=== PATIENT | female | born 2000 | race Hispanic/Latino ===

== ENCOUNTER 2019-06-23 11:52 | Outpatient (CLI) | payer MEDICAID ==
[2019-06-23] MEDS ORDERED: LACTATED RINGERS 1,000 ML ONE (12:35)
[2019-06-23] MEDS ORDERED: LACTATED RINGERS 500 ML IV ONE (12:47)
[2019-06-23] MEDS ORDERED: TERBUTALINE 1 MG/1 ML INJ SUB-Q ONE (13:50)
[2019-06-23] MEDS ORDERED: LACTATED RINGERS 1,000 ML IV SCH (14:00)
[2019-06-23 14:16] VITALS: BP 114/56
== END 2019-06-23 15:27 | disposition home or self-care (01) ==
LOC: TRG 11:52
PROVIDERS: ATTEND Obstetrics & Gynecology
DX: O62.9 Abnormality of forces of labor, unspecified (principal); O24.419 Gestational diabetes mellitus in pregnancy, unspecified control; Z3A.32 32 weeks gestation of pregnancy
CPT/HCPCS: 59025; 96372; J3105; J7120; 96360; 96361